=== PATIENT | female | born 1995 | race African-American/Black ===

== ENCOUNTER 2021-08-07 08:04 | Inpatient (IN) ==
[2021-08-07] MEDS ORDERED: ONDANSETRON 4 MG/2 ML VIAL IV STA (09:06)
[2021-08-07] MEDS ORDERED: SODIUM CHLORIDE 0.9% 1,000 ML IV STA ×2 (09:06→10:43)
[2021-08-07] MEDS ORDERED: cloNIDine 0.1 MG TABLET PO STA (09:16)
[2021-08-07 09:31] LABS: Basophils % 0.2 % (0.0-0.8); Hematocrit 30.5 VOL% (35.7-47.0); Hemoglobin 10.2 GM/DL (12.0-16.0); Immature Granulocytes % 0.6 %; Immature Granulocytes Absolute 0.12 #; Lymphocytes # 1.6 10*3/uL (1.4-4.0); Lymphocytes % 8.2 % (21.3-54.2); Mean Corpuscular HGB Conc 33.4 GM/DL (32-36); Mean Corpuscular Volume 93.3 FL (87-102); Mean Platelet Volume 10.3 FL (9.6-12.0); Monocytes % 3.9 % (1.7-12.7); Neutrophils % 87.1 % (38.7-73.9); Platelet Count 268 T/CUMM (130-400); Red Blood Count 3.27 MC/CUMM (3.8-5.5); Red Cell Distribution Width 14.2 % (9.3-17.3); White Blood Count 19.3 T/CUMM (4-12)
[2021-08-07 09:51] LABS: Albumin 2.2 G/DL (3.4-5.0); Bilirubin,Total 0.6 MG/DL (0.20-1.00); Osmolality,Calculated 307.8 MOS/KG (273-304); Potassium 4.3 MMOL/L (3.5-5.1); Total Protein 6.9 G/DL (6.4-8.2)
[2021-08-07 10:44] LABS: Bacteria,Urine Occasional /HPF (Few); Bilirubin,Urine Negative (Negative); Blood, Urine Small mg/dL (Negative); Glucose,Urine (UA) >=500 mg/dL (Negative); Hyaline Casts,Urine 5 /LPF (0-3); Ketones,Urine 5 mg/dL (Negative); Mucus,Urine Occasional /LPF (Occasional); Nitrite,Urine Negative (Negative); Protein,Urine >=500 MG/DL; RBC,Urine 6 /HPF (0-4); Squamous Epithelial Cell,Urine Occasional /HPF (0-10); Urine Appearance Slightly Hazy (Clear); Urine Color Yellow (Yellow); Urine Specific Gravity 1.015 (1.001-1.035); Urine Urobilinogen < 2.0 EU/DL (0.2-1.0)
[2021-08-07 10:46] LABS: Barbiturates Screen,Urine Negative (Negative); Benzodiazepines Screen,Urine Negative (Negative); Cannabinoid Screen,Urine Positive (Negative); Opiate Screen,Urine Negative (Negative); Phencyclidine Screen,Urine Negative (Negative)
[2021-08-07] MEDS ORDERED: cefTRIAXone 1,000 MG in SODIUM CHLORIDE 0.9% 100 ML IV STA (11:09)
[2021-08-07] MEDS ORDERED: DEXTROSE 50% 25 GM/50 ML VIAL IV PRN (11:14)
[2021-08-07] MEDS ORDERED: GLUCAGON 1 MG VIAL IM PRN (11:14)
[2021-08-07] MEDS ORDERED: ALBUTEROL 2.5 MG/3 ML NEB RESP TX PRN (11:14)
[2021-08-07] MEDS ORDERED: ONDANSETRON 4 MG/2 ML VIAL IV PRN (11:14)
[2021-08-07] MEDS ORDERED: ACETAMINOPHEN 325 MG TABLET PO PRN (11:14)
[2021-08-07] MEDS ORDERED: NICOTINE 14 MG/24 HR PATCH TRANSDERM PRN (11:44)
[2021-08-07 12:02] LABS: Risk Ratio 3.7; Thyroid Stimulating Hormone 2.06 uIU/ml (0.358-3.74); VLDL Cholesterol 39.4 MG/DL
[2021-08-07 14:29] LABS: Hematocrit 28.7 VOL% (35.7-47.0); Hemoglobin 9.1 GM/DL (12.0-16.0)
[2021-08-07] MEDS: INSULIN REGULAR 100 UNIT/ML SUBCUT SCH ×3 (14:32→20:47)
[2021-08-07] MEDS ORDERED: ALUM/MAG/SIMETH/LIDO VISC 1:1 30 ML BOTTLE PO ONE (15:00)
[2021-08-07] MEDS ORDERED: ASPIRIN CHEW 81 MG TABLET PO ONE (15:01)
[2021-08-07] MEDS ORDERED: NITROGLYCERIN SL 0.4 MG TABLET SL ONE (15:01)
[2021-08-07] MEDS ORDERED: ASPIRIN 325 MG TABLET ONE (15:01)
[2021-08-07] MEDS ORDERED: INFLUENZA VIRUS VACCINE 0.5 ML SYRINGE IM ONE (15:18)
[2021-08-07] MEDS: PANTOPRAZOLE 40 MG TABLET PO SCH (16:02)
[2021-08-07] MEDS: SODIUM CHLORIDE 0.9% 1,000 ML IV SCH (16:39)
[2021-08-07] MEDS ORDERED: MORPHINE 2 MG/1 ML SYRINGE IV ONE (17:36)
[2021-08-07 21:34] LABS: Hematocrit 27.8 VOL% (35.7-47.0); Hemoglobin 8.8 GM/DL (12.0-16.0)
[2021-08-08] MEDS: SODIUM CHLORIDE 0.9% 1,000 ML IV SCH ×2 (01:11→09:25)
[2021-08-08 05:19] LABS: Basophils % 0.2 % (0.0-0.8); Eosinophils % 0.2 % (0.00-10.9); Hematocrit 27.5 VOL% (35.7-47.0); Hemoglobin 8.8 GM/DL (12.0-16.0); Immature Granulocytes % 0.5 %; Immature Granulocytes Absolute 0.07 #; Lymphocytes # 1.7 10*3/uL (1.4-4.0); Lymphocytes % 12.4 % (21.3-54.2); Mean Corpuscular Volume 95.8 FL (87-102); Mean Platelet Volume 10.8 FL (9.6-12.0); Monocytes % 5.2 % (1.7-12.7); Neutrophils % 81.5 % (38.7-73.9); Red Blood Count 2.87 MC/CUMM (3.8-5.5); Red Cell Distribution Width 14.6 % (9.3-17.3); White Blood Count 13.9 T/CUMM (4-12)
[2021-08-08 05:20] LABS: Platelet Count 179 T/CUMM (130-400)
[2021-08-08 05:40] LABS: Calcium 7.4 MG/DL (8.5-10.1); Potassium 4.3 MMOL/L (3.5-5.1)
[2021-08-08] MEDS: FERROUS SULFATE 325 MG TABLET PO SCH (08:26)
[2021-08-08] MEDS: PANTOPRAZOLE 40 MG TABLET PO SCH (08:26)
[2021-08-08] MEDS ORDERED: PANTOPRAZOLE 40 MG TABLET PO SCH (09:00)
[2021-08-08] MEDS: INSULIN REGULAR 100 UNIT/ML SUBCUT SCH ×4 (10:00→21:09)
[2021-08-08] MEDS ORDERED: MORPHINE 2 MG/1 ML SYRINGE IV ONE (15:14)
[2021-08-08] MEDS: hydrALAZINE 20 MG/1 ML VIAL IV PRN (18:35)
[2021-08-08] MEDS: DIAZEPAM 2 MG TABLET PO SCH (21:09)
[2021-08-09 04:55] LABS: Basophils % 0.2 % (0.0-0.8); Eosinophils # 0.1 10*3/uL (0.0-0.87); Hematocrit 27.4 VOL% (35.7-47.0); Hemoglobin 8.5 GM/DL (12.0-16.0); Immature Granulocytes % 0.2 %; Immature Granulocytes Absolute 0.02 #; Lymphocytes # 1.7 10*3/uL (1.4-4.0); Lymphocytes % 18.4 % (21.3-54.2); Mean Corpuscular Volume 96.5 FL (87-102); Mean Platelet Volume 10.7 FL (9.6-12.0); Monocytes % 4.4 % (1.7-12.7); Neutrophils % 75.8 % (38.7-73.9); Platelet Count 178 T/CUMM (130-400); Red Blood Count 2.84 MC/CUMM (3.8-5.5); Red Cell Distribution Width 14.2 % (9.3-17.3); White Blood Count 9.1 T/CUMM (4-12)
[2021-08-09 05:14] LABS: Calcium 7.7 MG/DL (8.5-10.1); Osmolality,Calculated 298.8 MOS/KG (273-304); Potassium 3.8 MMOL/L (3.5-5.1)
[2021-08-09] MEDS: SODIUM CHLORIDE 0.9% 1,000 ML IV SCH ×4 (06:23→21:39)
[2021-08-09] MEDS: INSULIN REGULAR 100 UNIT/ML SUBCUT SCH ×4 (07:38→20:09)
[2021-08-09] MEDS: hydrALAZINE 20 MG/1 ML VIAL IV PRN (07:49)
[2021-08-09] MEDS: FERROUS SULFATE 325 MG TABLET PO SCH (09:21)
[2021-08-09] MEDS: cloNIDine 0.1 MG TABLET PO SCH ×2 (09:21→20:36)
[2021-08-09] MEDS: DIAZEPAM 2 MG TABLET PO SCH ×3 (09:22→20:37)
[2021-08-09] MEDS: PANTOPRAZOLE 40 MG TABLET PO SCH (09:22)
[2021-08-10] MEDS: SODIUM CHLORIDE 0.9% 1,000 ML IV SCH ×3 (02:35→19:30)
[2021-08-10 04:42] LABS: Basophils % 0.5 % (0.0-0.8); Eosinophils # 0.1 10*3/uL (0.0-0.87); Eosinophils % 1.2 % (0.00-10.9); Hematocrit 23.1 VOL% (35.7-47.0); Hemoglobin 7.1 GM/DL (12.0-16.0); Immature Granulocytes % 0.5 %; Immature Granulocytes Absolute 0.03 #; Lymphocytes # 1.7 10*3/uL (1.4-4.0); Lymphocytes % 26.4 % (21.3-54.2); Mean Corpuscular HGB Conc 30.7 GM/DL (32-36); Mean Corpuscular Volume 97.5 FL (87-102); Mean Platelet Volume 10.7 FL (9.6-12.0); Monocytes % 4.6 % (1.7-12.7); Neutrophils % 66.8 % (38.7-73.9); Platelet Count 174 T/CUMM (130-400); Red Blood Count 2.37 MC/CUMM (3.8-5.5); Red Cell Distribution Width 14.2 % (9.3-17.3); White Blood Count 6.6 T/CUMM (4-12)
[2021-08-10 05:10] LABS: Calcium 7.9 MG/DL (8.5-10.1); Osmolality,Calculated 297.8 MOS/KG (273-304); Potassium 3.8 MMOL/L (3.5-5.1)
[2021-08-10] MEDS: INSULIN REGULAR 100 UNIT/ML SUBCUT SCH ×4 (07:53→21:00)
[2021-08-10 08:01] LABS: Hematocrit 23.8 VOL% (35.7-47.0); Hemoglobin 7.5 GM/DL (12.0-16.0)
[2021-08-10] MEDS: FERROUS SULFATE 325 MG TABLET PO SCH (10:14)
[2021-08-10] MEDS: PANTOPRAZOLE 40 MG TABLET PO SCH (10:14)
[2021-08-10] MEDS: cloNIDine 0.1 MG TABLET PO SCH ×2 (10:14→20:46)
[2021-08-10] MEDS: DIAZEPAM 2 MG TABLET PO SCH ×3 (10:14→20:46)
[2021-08-10] MEDS: hydrALAZINE 20 MG/1 ML VIAL IV PRN ×2 (11:41→23:44)
[2021-08-10 14:22] LABS: Hematocrit 23.9 VOL% (35.7-47.0); Hemoglobin 7.6 GM/DL (12.0-16.0)
[2021-08-10 17:08] LABS: Protein/Creatinine Ratio,Urine 5.6 RATIO
[2021-08-10 18:59] LABS: Hematocrit 24.5 VOL% (35.7-47.0); Hemoglobin 7.9 GM/DL (12.0-16.0)
[2021-08-10] MEDS ORDERED: MORPHINE 2 MG/1 ML SYRINGE ONE (23:30)
[2021-08-10] MEDS ORDERED: NITROGLYCERIN SL 0.4 MG TABLET SL ONE (23:30)
[2021-08-10] MEDS ORDERED: MORPHINE 2 MG/1 ML SYRINGE IV ONE (23:42)
[2021-08-11] MEDS: MORPHINE 2 MG/1 ML SYRINGE IV PRN (03:52)
[2021-08-11] MEDS: SODIUM CHLORIDE 0.9% 1,000 ML IV SCH ×3 (04:12→20:24)
[2021-08-11 05:51] LABS: Basophils % 0.3 % (0.0-0.8); Eosinophils # 0.1 10*3/uL (0.0-0.87); Eosinophils % 0.9 % (0.00-10.9); Hematocrit 24.9 VOL% (35.7-47.0); Hemoglobin 7.7 GM/DL (12.0-16.0); Immature Granulocytes % 0.5 %; Immature Granulocytes Absolute 0.04 #; Lymphocytes # 1.5 10*3/uL (1.4-4.0); Lymphocytes % 20.2 % (21.3-54.2); Mean Corpuscular HGB Conc 30.9 GM/DL (32-36); Mean Corpuscular Volume 95.8 FL (87-102); Mean Platelet Volume 10.5 FL (9.6-12.0); Monocytes % 4.7 % (1.7-12.7); Neutrophils % 73.4 % (38.7-73.9); Platelet Count 222 T/CUMM (130-400); Red Cell Distribution Width 14.1 % (9.3-17.3); White Blood Count 7.4 T/CUMM (4-12)
[2021-08-11 06:10] LABS: Calcium 8.2 MG/DL (8.5-10.1); Osmolality,Calculated 298.7 MOS/KG (273-304)
[2021-08-11] MEDS: cloNIDine 0.1 MG TABLET PO SCH ×2 (08:41→20:17)
[2021-08-11] MEDS: DIAZEPAM 2 MG TABLET PO SCH ×3 (08:41→20:18)
[2021-08-11] MEDS: PANTOPRAZOLE 40 MG TABLET PO SCH (08:41)
[2021-08-11] MEDS: FERROUS SULFATE 325 MG TABLET PO SCH (08:41)
[2021-08-11] MEDS: INSULIN REGULAR 100 UNIT/ML SUBCUT SCH ×4 (09:07→20:17)
[2021-08-11 18:37] LABS: Barbiturates Screen,Urine Negative (Negative); Benzodiazepines Screen,Urine Positive (Negative); Cannabinoid Screen,Urine Positive (Negative); Opiate Screen,Urine Positive (Negative); Phencyclidine Screen,Urine Negative (Negative)
[2021-08-11] MEDS: GABAPENTIN 50 MG/ML 30 ML/BOTTLE PO SCH (20:26)
[2021-08-11] MEDS: hydrALAZINE 20 MG/1 ML VIAL IV PRN (23:46)
[2021-08-12] MEDS: MORPHINE 2 MG/1 ML SYRINGE IV PRN ×3 (03:28→20:55)
[2021-08-12] MEDS: SODIUM CHLORIDE 0.9% 1,000 ML IV SCH ×2 (03:32→13:09)
[2021-08-12 05:15] LABS: Basophils % 0.5 % (0.0-0.8); Eosinophils # 0.1 10*3/uL (0.0-0.87); Eosinophils % 1.5 % (0.00-10.9); Hematocrit 22.4 VOL% (35.7-47.0); Hemoglobin 7.3 GM/DL (12.0-16.0); Immature Granulocytes % 0.3 %; Immature Granulocytes Absolute 0.02 #; Lymphocytes # 1.2 10*3/uL (1.4-4.0); Lymphocytes % 19.6 % (21.3-54.2); Mean Corpuscular HGB Conc 32.6 GM/DL (32-36); Mean Corpuscular Volume 96.1 FL (87-102); Mean Platelet Volume 10.5 FL (9.6-12.0); Monocytes % 4.8 % (1.7-12.7); Neutrophils % 73.3 % (38.7-73.9); Platelet Count 214 T/CUMM (130-400); Red Blood Count 2.33 MC/CUMM (3.8-5.5); Red Cell Distribution Width 13.8 % (9.3-17.3)
[2021-08-12 05:30] LABS: Calcium 8.3 MG/DL (8.5-10.1); Osmolality,Calculated 298.8 MOS/KG (273-304); Potassium 4.4 MMOL/L (3.5-5.1)
[2021-08-12] MEDS: INSULIN REGULAR 100 UNIT/ML SUBCUT SCH ×4 (08:12→20:55)
[2021-08-12 09:37] LABS: % Iron Saturation 12.9 % (18-50); Ferritin 131.9 ng/mL (8-252)
[2021-08-12] MEDS: PANTOPRAZOLE 40 MG TABLET PO SCH ×2 (09:38→20:54)
[2021-08-12] MEDS: cloNIDine 0.1 MG TABLET PO SCH ×2 (09:38→20:55)
[2021-08-12] MEDS: FERROUS SULFATE 325 MG TABLET PO SCH (09:38)
[2021-08-12] MEDS: DIAZEPAM 2 MG TABLET PO SCH ×3 (09:38→20:54)
[2021-08-12] MEDS: GABAPENTIN 50 MG/ML 30 ML/BOTTLE PO SCH ×3 (09:43→23:31)
[2021-08-12] MEDS: LIDOCAINE 5% PATCH TRANSDERM SCH (14:27)
[2021-08-12] MEDS ORDERED: TRIAMCINOLONE ACETONIDE 40 MG/1 ML VIAL MISC INJ ONE (14:34)
[2021-08-12] MEDS ORDERED: ROPIVACAINE 0.5% 30 ML VIAL NERVEBLOCK ONE (14:34)
[2021-08-12] MEDS: metOLazone 5 MG TABLET PO SCH (15:12)
[2021-08-12] MEDS: FUROSEMIDE 40 MG/4 ML VIAL IV SCH (15:12)
[2021-08-13] MEDS: hydrALAZINE 20 MG/1 ML VIAL IV PRN (00:03)
[2021-08-13] MEDS: MORPHINE 2 MG/1 ML SYRINGE IV PRN ×2 (03:14→17:50)
[2021-08-13 08:52] LABS: Calcium 8.7 MG/DL (8.5-10.1); Osmolality,Calculated 301.7 MOS/KG (273-304); Potassium 4.3 MMOL/L (3.5-5.1)
[2021-08-13] MEDS ORDERED: FUROSEMIDE 100 MG/10 ML VIAL IV ONE (09:00)
[2021-08-13 09:18] LABS: Hematocrit 26.7 VOL% (35.7-47.0); Hemoglobin 8.8 GM/DL (12.0-16.0)
[2021-08-13] MEDS: cloNIDine 0.1 MG TABLET PO SCH ×2 (09:18→20:31)
[2021-08-13] MEDS: DIAZEPAM 2 MG TABLET PO SCH ×3 (09:18→20:31)
[2021-08-13] MEDS: metOLazone 5 MG TABLET PO SCH (09:18)
[2021-08-13] MEDS: PANTOPRAZOLE 40 MG TABLET PO SCH ×2 (09:19→20:31)
[2021-08-13] MEDS: CITALOPRAM 20 MG TABLET PO SCH (09:19)
[2021-08-13] MEDS: FERROUS SULFATE 325 MG TABLET PO SCH (09:19)
[2021-08-13] MEDS: INSULIN REGULAR 100 UNIT/ML SUBCUT SCH ×4 (09:20→20:32)
[2021-08-13] MEDS: FUROSEMIDE 40 MG/4 ML VIAL IV SCH ×2 (09:20→15:49)
[2021-08-13] MEDS: GABAPENTIN 50 MG/ML 30 ML/BOTTLE PO SCH ×3 (09:20→20:32)
[2021-08-13] MEDS: LIDOCAINE 5% PATCH TRANSDERM SCH (09:20)
[2021-08-13 12:44] LABS: Folate 7.11 NG/ML (5.38-24.0)
[2021-08-14 07:21] VITALS: BP 161/90
[2021-08-14] MEDS: INSULIN REGULAR 100 UNIT/ML SUBCUT SCH ×3 (08:25→16:52)
[2021-08-14] MEDS: GABAPENTIN 50 MG/ML 30 ML/BOTTLE PO SCH ×2 (10:21→16:51)
[2021-08-14] MEDS: cloNIDine 0.1 MG TABLET PO SCH (10:22)
[2021-08-14] MEDS: CITALOPRAM 20 MG TABLET PO SCH (10:22)
[2021-08-14] MEDS: PANTOPRAZOLE 40 MG TABLET PO SCH (10:22)
[2021-08-14] MEDS: FERROUS SULFATE 325 MG TABLET PO SCH (10:23)
[2021-08-14] MEDS: DIAZEPAM 2 MG TABLET PO SCH ×2 (10:23→16:51)
[2021-08-14] MEDS: metOLazone 5 MG TABLET PO SCH (10:23)
[2021-08-14] MEDS: FUROSEMIDE 40 MG/4 ML VIAL IV SCH ×2 (10:23→16:52)
[2021-08-14] MEDS: LIDOCAINE 5% PATCH TRANSDERM SCH (10:24)
[2021-08-16 09:11] LABS: H pylori Specimen source STOOL; Helicobacter pylori Result Not Detected
== END 2021-08-14 16:49 | disposition home or self-care (01) | DRG 203 ==
LOC: N.ED 08:04 → N.EDINP 11:14 → SUATTDRO 11:14 → N.EDINP 13:47 → N.5E 13:59
PROVIDERS: ADMIT Internal Medicine Geriatric Medicine; ATTEND Internal Medicine

== ENCOUNTER 2021-12-13 19:25 | Inpatient (IN) ==
[2021-12-14] MEDS ORDERED: FUROSEMIDE 40 MG/4 ML VIAL IV STA (00:53)
[2021-12-14 01:22] LABS: Basophils % 0.4 % (0.0-0.8); Eosinophils # 0.2 10*3/uL (0.0-0.87); Eosinophils % 1.8 % (0.00-10.9); Hematocrit 21.9 VOL% (35.7-47.0); Hemoglobin 6.5 GM/DL (12.0-16.0); Immature Granulocytes % 0.3 %; Immature Granulocytes Absolute 0.03 #; Lymphocytes # 2.1 10*3/uL (1.4-4.0); Lymphocytes % 22.6 % (21.3-54.2); Mean Corpuscular HGB Conc 29.7 GM/DL (32-36); Mean Corpuscular Volume 92.4 FL (87-102); Mean Platelet Volume 10.4 FL (9.6-12.0); Monocytes % 6.1 % (1.7-12.7); Neutrophils % 68.8 % (38.7-73.9); Platelet Count 384 T/CUMM (130-400); Red Blood Count 2.37 MC/CUMM (3.8-5.5); Red Cell Distribution Width 17.4 % (9.3-17.3); White Blood Count 9.4 T/CUMM (4-12)
[2021-12-14 01:57] LABS: Alanine Aminotransferase < 9 U/L (13-56); Albumin 1.9 G/DL (3.4-5.0); Alkaline Phosphatase 65 U/L (45-117); Aspartate Amino Transferase 12 U/L (0-37); Bilirubin,Total < 0.39 MG/DL (0.20-1.00); Blood Urea Nitrogen 94 MG/DL (7-18); Calcium 8.6 MG/DL (8.5-10.1); Carbon Dioxide 14 MMOL/L (21-32); Estimated Glom Filtration Rate 5 ML/MIN; Glucose 176 MG/DL (74-106); Osmolality,Calculated 311.4 MOS/KG (273-304); Potassium 5.2 MMOL/L (3.5-5.1); Sodium 140 MMOL/L (136-145); Total Protein 8.1 G/DL (6.4-8.2)
[2021-12-14] MEDS ORDERED: DEXTROSE 50% 25 GM/50 ML VIAL IV STA (02:03)
[2021-12-14] MEDS ORDERED: INSULIN REGULAR 100 UNIT/ML IV STA (02:04)
[2021-12-14] MEDS ORDERED: LABETALOL 20 MG/4 ML SYRINGE IV STA (02:11)
[2021-12-14] MEDS ORDERED: GLUCAGON 1 MG VIAL IM PRN (02:49)
[2021-12-14] MEDS ORDERED: DEXTROSE 10% 250 ML BAG IV PRN (02:49)
[2021-12-14] MEDS ORDERED: hydrALAZINE 20 MG/1 ML VIAL IV PRN (02:49)
[2021-12-14] MEDS ORDERED: ACETAMINOPHEN 325 MG TABLET PO PRN (02:49)
[2021-12-14] MEDS ORDERED: SODIUM POLYSTYRENE SULFATE 15 GM/60 ML BOTTLE PO STA (02:49)
[2021-12-14] MEDS ORDERED: SODIUM CHLORIDE 0.9% 1,000 ML IV PRN ×3 (02:58→22:31)
[2021-12-14] MEDS: HYDROmorphone 2 MG/1 ML VIAL IV PRN (03:54)
[2021-12-14 04:42] LABS: Thyroid Stimulating Hormone 3.39 uIU/ml (0.358-3.74)
[2021-12-14 05:21] LABS: Folate 11.44 NG/ML (5.38-24.0)
[2021-12-14 05:25] LABS: % Iron Saturation 9.8 % (18-50); Ferritin 81.7 ng/mL (8-252)
[2021-12-14] MEDS: INSULIN LISPRO 100 UNIT/ML SUBCUT SCH ×4 (07:50→21:16)
[2021-12-14] MEDS: FUROSEMIDE 40 MG/4 ML VIAL IV SCH ×2 (09:00→16:06)
[2021-12-14] MEDS ORDERED: SODIUM BICARBONATE 650 MG TABLET PO SCH (09:00)
[2021-12-14] MEDS: PANTOPRAZOLE 40 MG VIAL IV SCH ×2 (09:03→21:16)
[2021-12-14] MEDS: LABETALOL 20 MG/4 ML SYRINGE IV PRN (10:35)
[2021-12-14] MEDS ORDERED: INFLUENZA VIRUS VACCINE 0.5 ML SYRINGE IM ONE (14:51)
[2021-12-14 15:34] LABS: Hematocrit 19.2 VOL% (35.7-47.0)
[2021-12-14 15:37] LABS: Hemoglobin 5.8 GM/DL (12.0-16.0)
[2021-12-14] MEDS: SODIUM BICARBONATE 650 MG TABLET PO SCH ×2 (15:53→21:17)
[2021-12-14] MEDS: FERRIC GLUCONATE COMPLEX 125 MG in SODIUM CHLORIDE 0.9% 100 ML IV SCH (15:53)
[2021-12-14] MEDS: ALPRAZolam 0.5 MG TABLET PO PRN (15:53)
[2021-12-14 17:31] LABS: Hematocrit 19.7 VOL% (35.7-47.0)
[2021-12-14 17:41] LABS: Hemoglobin 6.1 GM/DL (12.0-16.0)
[2021-12-14] MEDS ORDERED: EPOETIN ALFA-EPBX 3,000 UNIT/ML VIAL IV ONE (20:00)
[2021-12-15 06:39] LABS: Basophils % 0.5 % (0.0-0.8); Eosinophils # 0.2 10*3/uL (0.0-0.87); Eosinophils % 1.9 % (0.00-10.9); Immature Granulocytes % 0.4 %; Immature Granulocytes Absolute 0.03 #; Lymphocytes # 1.4 10*3/uL (1.4-4.0); Lymphocytes % 17.5 % (21.3-54.2); Mean Corpuscular HGB Conc 30.6 GM/DL (32-36); Mean Corpuscular Volume 89.2 FL (87-102); Mean Platelet Volume 9.7 FL (9.6-12.0); Monocytes % 7.6 % (1.7-12.7); Neutrophils % 72.1 % (38.7-73.9); Platelet Count 321 T/CUMM (130-400)
[2021-12-15 06:48] LABS: Hematocrit 28.1 VOL% (35.7-47.0); Hemoglobin 8.6 GM/DL (12.0-16.0); Red Blood Count 3.15 MC/CUMM (3.8-5.5)
[2021-12-15 07:15] LABS: Calcium 8.6 MG/DL (8.5-10.1); Osmolality,Calculated 303.5 MOS/KG (273-304); Potassium 5.2 MMOL/L (3.5-5.1)
[2021-12-15] MEDS: HYDROmorphone 2 MG/1 ML VIAL IV PRN ×4 (07:17→16:33)
[2021-12-15] MEDS: INSULIN LISPRO 100 UNIT/ML SUBCUT SCH ×4 (07:44→22:49)
[2021-12-15] MEDS: FUROSEMIDE 40 MG/4 ML VIAL IV SCH ×2 (08:42→16:31)
[2021-12-15] MEDS: SODIUM BICARBONATE 650 MG TABLET PO SCH ×3 (08:42→20:55)
[2021-12-15] MEDS: PANTOPRAZOLE 40 MG VIAL IV SCH ×2 (08:43→20:55)
[2021-12-15] MEDS ORDERED: IRON SUCROSE 200 MG in SODIUM CHLORIDE 0.9% 100 ML IV SCH (09:00)
[2021-12-15] MEDS: carvediloL 12.5 MG TABLET PO SCH ×2 (09:44→20:55)
[2021-12-15] MEDS: LABETALOL 20 MG/4 ML SYRINGE IV PRN (12:24)
[2021-12-15] MEDS: FERRIC GLUCONATE COMPLEX 125 MG in SODIUM CHLORIDE 0.9% 100 ML IV SCH (16:36)
[2021-12-15] MEDS ORDERED: INSULIN GLARGINE 100 UNIT/ML SUBCUT SCH (21:00)
[2021-12-15 23:44] LABS: Bacteria,Urine Occasional /HPF (Few); Bilirubin,Urine Negative (Negative); Blood, Urine Small mg/dL (Negative); Glucose,Urine (UA) 50 mg/dL (Negative); Hyaline Casts,Urine 1 /LPF (0-3); Ketones,Urine Negative (Negative); Mucus,Urine Occasional /LPF (Occasional); Nitrite,Urine Negative (Negative); Protein,Urine >=500 MG/DL; RBC,Urine 8 /HPF (0-4); Squamous Epithelial Cell,Urine Occasional /HPF (0-10); Urine Appearance CLEAR (Clear); Urine Color Straw (Yellow); Urine Urobilinogen < 2.0 EU/DL (<2.0)
[2021-12-16 03:47] LABS: Basophils % 0.4 % (0.0-0.8); Eosinophils # 0.2 10*3/uL (0.0-0.87); Eosinophils % 1.8 % (0.00-10.9); Hematocrit 25.6 VOL% (35.7-47.0); Hemoglobin 7.8 GM/DL (12.0-16.0); Immature Granulocytes % 0.4 %; Immature Granulocytes Absolute 0.03 #; Lymphocytes # 1.1 10*3/uL (1.4-4.0); Lymphocytes % 13.8 % (21.3-54.2); Mean Corpuscular HGB Conc 30.5 GM/DL (32-36); Mean Corpuscular Volume 89.5 FL (87-102); Mean Platelet Volume 9.6 FL (9.6-12.0); Monocytes % 6.9 % (1.7-12.7); Neutrophils % 76.7 % (38.7-73.9); Platelet Count 307 T/CUMM (130-400); Red Blood Count 2.86 MC/CUMM (3.8-5.5); Red Cell Distribution Width 17.1 % (9.3-17.3); White Blood Count 8.1 T/CUMM (4-12)
[2021-12-16 04:04] LABS: Calcium 7.9 MG/DL (8.5-10.1); Osmolality,Calculated 311.3 MOS/KG (273-304); Potassium 5.2 MMOL/L (3.5-5.1)
[2021-12-16] MEDS: LABETALOL 20 MG/4 ML SYRINGE IV PRN (04:33)
[2021-12-16] MEDS ORDERED: CITALOPRAM 20 MG TABLET PO SCH (09:00)
[2021-12-16] MEDS: SODIUM BICARBONATE 650 MG TABLET PO SCH ×3 (09:11→20:47)
[2021-12-16] MEDS: carvediloL 12.5 MG TABLET PO SCH (09:11)
[2021-12-16] MEDS: FUROSEMIDE 40 MG/4 ML VIAL IV SCH ×2 (09:12→16:55)
[2021-12-16] MEDS: PANTOPRAZOLE 40 MG VIAL IV SCH ×2 (09:14→20:46)
[2021-12-16] MEDS: INSULIN LISPRO 100 UNIT/ML SUBCUT SCH ×3 (12:30→21:05)
[2021-12-16] MEDS: metOLazone 5 MG TABLET PO SCH (16:51)
[2021-12-16] MEDS: FERRIC GLUCONATE COMPLEX 125 MG in SODIUM CHLORIDE 0.9% 100 ML IV SCH (16:53)
[2021-12-16] MEDS: INSULIN GLARGINE 100 UNIT/ML SUBCUT SCH (20:46)
[2021-12-16] MEDS: carvediloL 6.25 MG TABLET PO SCH (20:47)
[2021-12-16] MEDS: OLANZapine 2.5 MG TABLET PO SCH (20:47)
[2021-12-16] MEDS: FLUoxetine 10 MG CAPSULE PO SCH (20:47)
[2021-12-17 05:11] LABS: Basophils % 0.4 % (0.0-0.8); Eosinophils # 0.2 10*3/uL (0.0-0.87); Eosinophils % 2.3 % (0.00-10.9); Hematocrit 23.4 VOL% (35.7-47.0); Hemoglobin 7.1 GM/DL (12.0-16.0); Immature Granulocytes % 0.4 %; Immature Granulocytes Absolute 0.03 #; Lymphocytes # 1.5 10*3/uL (1.4-4.0); Lymphocytes % 21.9 % (21.3-54.2); Mean Corpuscular HGB Conc 30.3 GM/DL (32-36); Mean Corpuscular Volume 90.3 FL (87-102); Mean Platelet Volume 10.3 FL (9.6-12.0); Platelet Count 310 T/CUMM (130-400); Red Blood Count 2.59 MC/CUMM (3.8-5.5); Red Cell Distribution Width 16.9 % (9.3-17.3); White Blood Count 6.9 T/CUMM (4-12)
[2021-12-17 05:36] LABS: Calcium 8.1 MG/DL (8.5-10.1); Osmolality,Calculated 302.5 MOS/KG (273-304); Potassium 4.8 MMOL/L (3.5-5.1)
[2021-12-17] MEDS: PANTOPRAZOLE 40 MG VIAL IV SCH ×2 (09:15→21:58)
[2021-12-17] MEDS: INSULIN LISPRO 100 UNIT/ML SUBCUT SCH ×5 (09:40→20:57)
[2021-12-17] MEDS: carvediloL 6.25 MG TABLET PO SCH ×2 (10:13→20:55)
[2021-12-17] MEDS: SODIUM BICARBONATE 650 MG TABLET PO SCH ×3 (10:13→20:56)
[2021-12-17] MEDS: metOLazone 5 MG TABLET PO SCH (10:14)
[2021-12-17] MEDS: FUROSEMIDE 40 MG/4 ML VIAL IV SCH ×2 (10:16→16:32)
[2021-12-17] MEDS: GABAPENTIN 100 MG CAPSULE PO SCH ×2 (16:30→20:56)
[2021-12-17] MEDS: FERRIC GLUCONATE COMPLEX 125 MG in SODIUM CHLORIDE 0.9% 100 ML IV SCH (16:33)
[2021-12-17] MEDS ORDERED: BISACODYL 5 MG TABLET PO ONE (17:42)
[2021-12-17 17:46] LABS: CKMB % 1.3 %
[2021-12-17] MEDS: HEPARIN 5,000 UNIT/1 ML VIAL SUBCUT SCH (18:00)
[2021-12-17] MEDS: OLANZapine 2.5 MG TABLET PO SCH (20:56)
[2021-12-17] MEDS: FLUoxetine 10 MG CAPSULE PO SCH (20:56)
[2021-12-17] MEDS: INSULIN GLARGINE 100 UNIT/ML SUBCUT SCH (20:57)
[2021-12-18] MEDS: HEPARIN 5,000 UNIT/1 ML VIAL SUBCUT SCH (05:18)
[2021-12-18 05:32] LABS: Basophils % 0.2 % (0.0-0.8); Eosinophils # 0.1 10*3/uL (0.0-0.87); Eosinophils % 1.4 % (0.00-10.9); Hematocrit 25.1 VOL% (35.7-47.0); Hemoglobin 7.6 GM/DL (12.0-16.0); Immature Granulocytes % 0.4 %; Immature Granulocytes Absolute 0.03 #; Lymphocytes # 1.4 10*3/uL (1.4-4.0); Lymphocytes % 16.6 % (21.3-54.2); Mean Corpuscular HGB Conc 30.3 GM/DL (32-36); Mean Corpuscular Volume 89.6 FL (87-102); Monocytes % 10.5 % (1.7-12.7); Neutrophils % 70.9 % (38.7-73.9); Platelet Count 344 T/CUMM (130-400); Red Cell Distribution Width 16.6 % (9.3-17.3); White Blood Count 8.4 T/CUMM (4-12)
[2021-12-18 05:56] LABS: Osmolality,Calculated 302.7 MOS/KG (273-304); Potassium 4.8 MMOL/L (3.5-5.1)
[2021-12-18] MEDS: INSULIN LISPRO 100 UNIT/ML SUBCUT SCH ×4 (08:29→22:23)
[2021-12-18] MEDS: metOLazone 5 MG TABLET PO SCH (10:47)
[2021-12-18] MEDS: FEBUXOSTAT 80 MG TABLET PO SCH (10:47)
[2021-12-18] MEDS: SODIUM BICARBONATE 650 MG TABLET PO SCH ×3 (10:47→20:42)
[2021-12-18] MEDS: carvediloL 6.25 MG TABLET PO SCH ×2 (10:48→20:41)
[2021-12-18] MEDS: FUROSEMIDE 40 MG/4 ML VIAL IV SCH ×2 (10:50→15:55)
[2021-12-18] MEDS: GABAPENTIN 100 MG CAPSULE PO SCH ×3 (10:54→20:42)
[2021-12-18] MEDS: PANTOPRAZOLE 40 MG VIAL IV SCH ×2 (10:54→20:57)
[2021-12-18] MEDS: FERRIC GLUCONATE COMPLEX 125 MG in SODIUM CHLORIDE 0.9% 100 ML IV SCH (16:06)
[2021-12-18] MEDS: OLANZapine 2.5 MG TABLET PO SCH (20:42)
[2021-12-18] MEDS: FLUoxetine 10 MG CAPSULE PO SCH (21:02)
[2021-12-19 05:34] LABS: Basophils % 0.3 % (0.0-0.8); Eosinophils # 0.1 10*3/uL (0.0-0.87); Eosinophils % 1.4 % (0.00-10.9); Hematocrit 24.5 VOL% (35.7-47.0); Hemoglobin 7.6 GM/DL (12.0-16.0); Immature Granulocytes % 0.3 %; Immature Granulocytes Absolute 0.02 #; Lymphocytes # 1.4 10*3/uL (1.4-4.0); Lymphocytes % 18.5 % (21.3-54.2); Mean Corpuscular Volume 88.4 FL (87-102); Mean Platelet Volume 10.3 FL (9.6-12.0); Monocytes % 10.1 % (1.7-12.7); Neutrophils % 69.4 % (38.7-73.9); Platelet Count 341 T/CUMM (130-400); Red Blood Count 2.77 MC/CUMM (3.8-5.5); Red Cell Distribution Width 16.7 % (9.3-17.3); White Blood Count 7.6 T/CUMM (4-12)
[2021-12-19 05:48] LABS: Calcium 7.6 MG/DL (8.5-10.1); Osmolality,Calculated 301.8 MOS/KG (273-304); Potassium 4.8 MMOL/L (3.5-5.1)
[2021-12-19] MEDS: INSULIN LISPRO 100 UNIT/ML SUBCUT SCH ×4 (07:36→21:00)
[2021-12-19] MEDS: carvediloL 6.25 MG TABLET PO SCH ×2 (08:39→21:00)
[2021-12-19] MEDS ORDERED: ONDANSETRON 4 MG/2 ML VIAL ONE (08:40)
[2021-12-19] MEDS ORDERED: SODIUM CHLORIDE 0.9% 250 ML IV ONE (08:40)
[2021-12-19] MEDS ORDERED: HEPARIN 5,000 UNIT/1 ML VIAL ONE (08:40)
[2021-12-19] MEDS ORDERED: MIDAZOLAM 2 MG/2 ML VIAL ONE ×2 (08:40→09:07)
[2021-12-19] MEDS ORDERED: propofoL 200 MG/20 ML VIAL IV ONE (08:40)
[2021-12-19] MEDS ORDERED: fentaNYL 100 MCG/2 ML VIAL ONE (08:40)
[2021-12-19] MEDS ORDERED: LIDOCAINE 2% 5 ML VIAL ONE (08:40)
[2021-12-19] MEDS ORDERED: BUPIVACAINE MPF 0.25% 30 ML VIAL ONE (08:40)
[2021-12-19] MEDS ORDERED: LIDOCAINE 1%/EPI INJ 20 ML VIAL ONE (08:41)
[2021-12-19] MEDS ORDERED: KETAMINE 500 MG/10 ML VIAL ONE (08:41)
[2021-12-19] MEDS ORDERED: SODIUM CHLORIDE 0.9% 250 ML IV SCH (09:30)
[2021-12-19] MEDS: GABAPENTIN 100 MG CAPSULE PO SCH ×3 (10:38→21:01)
[2021-12-19] MEDS: FUROSEMIDE 40 MG/4 ML VIAL IV SCH ×2 (10:38→17:02)
[2021-12-19] MEDS: metOLazone 5 MG TABLET PO SCH (10:38)
[2021-12-19] MEDS: PANTOPRAZOLE 40 MG VIAL IV SCH ×2 (10:38→21:00)
[2021-12-19] MEDS: SODIUM BICARBONATE 650 MG TABLET PO SCH ×3 (10:38→21:00)
[2021-12-19] MEDS: FEBUXOSTAT 80 MG TABLET PO SCH (10:38)
[2021-12-19 10:53] LABS: Hepatitis B Core IgM Quant 0.12 Index; Hepatitis B Surface Ag Quant < 0.10 Index; Hepatitis B Surface Ag Result Non-Reactive (NonReactive); Hepatitis C Virus Ab Quant 0.19 Index; Hepatitis C Virus Ab Result Non-Reactive (NonReactive)
[2021-12-19] MEDS ORDERED: HEPARIN 10,000 UNIT/10 ML VIAL IV PRN (14:15)
[2021-12-19] MEDS: OLANZapine 2.5 MG TABLET PO SCH (21:00)
[2021-12-19] MEDS: FLUoxetine 10 MG CAPSULE PO SCH (21:01)
[2021-12-20 05:52] LABS: Basophils # 0.1 10*3/uL (0.0-0.2); Basophils % 0.6 % (0.0-0.8); Eosinophils # 0.2 10*3/uL (0.0-0.87); Eosinophils % 2.1 % (0.00-10.9); Hematocrit 26.5 VOL% (35.7-47.0); Hemoglobin 8.1 GM/DL (12.0-16.0); Immature Granulocytes % 0.4 %; Immature Granulocytes Absolute 0.03 #; Lymphocytes # 1.6 10*3/uL (1.4-4.0); Lymphocytes % 18.7 % (21.3-54.2); Mean Corpuscular HGB Conc 30.6 GM/DL (32-36); Mean Corpuscular Volume 88.9 FL (87-102); Mean Platelet Volume 9.5 FL (9.6-12.0); Monocytes % 9.3 % (1.7-12.7); Neutrophils % 68.9 % (38.7-73.9); Platelet Count 355 T/CUMM (130-400); Red Blood Count 2.98 MC/CUMM (3.8-5.5); Red Cell Distribution Width 16.7 % (9.3-17.3); White Blood Count 8.5 T/CUMM (4-12)
[2021-12-20 06:06] LABS: Calcium 8.1 MG/DL (8.5-10.1); Osmolality,Calculated 295.8 MOS/KG (273-304); Potassium 4.3 MMOL/L (3.5-5.1)
[2021-12-20] MEDS: INSULIN LISPRO 100 UNIT/ML SUBCUT SCH ×4 (09:00→22:00)
[2021-12-20] MEDS ORDERED: EPOETIN ALFA-EPBX 3,000 UNIT/ML VIAL IV PRN (10:05)
[2021-12-20 10:37] LABS: % Iron Saturation 19.3 % (18-50)
[2021-12-20] MEDS: FUROSEMIDE 40 MG/4 ML VIAL IV SCH ×2 (12:32→16:24)
[2021-12-20] MEDS: SODIUM BICARBONATE 650 MG TABLET PO SCH ×3 (12:33→21:59)
[2021-12-20] MEDS: GABAPENTIN 100 MG CAPSULE PO SCH ×4 (12:33→22:00)
[2021-12-20] MEDS: carvediloL 6.25 MG TABLET PO SCH ×2 (13:17→22:00)
[2021-12-20] MEDS: PANTOPRAZOLE 40 MG VIAL IV SCH ×2 (13:17→22:01)
[2021-12-20] MEDS: metOLazone 5 MG TABLET PO SCH (13:17)
[2021-12-20] MEDS: FEBUXOSTAT 80 MG TABLET PO SCH (13:17)
[2021-12-20] MEDS: OLANZapine 2.5 MG TABLET PO SCH (22:00)
[2021-12-20] MEDS: FLUoxetine 10 MG CAPSULE PO SCH (22:00)
[2021-12-21 07:07] LABS: Basophils % 0.4 % (0.0-0.8); Eosinophils # 0.1 10*3/uL (0.0-0.87); Eosinophils % 1.3 % (0.00-10.9); Hematocrit 24.3 VOL% (35.7-47.0); Hemoglobin 7.5 GM/DL (12.0-16.0); Immature Granulocytes % 0.4 %; Immature Granulocytes Absolute 0.03 #; Lymphocytes # 1.7 10*3/uL (1.4-4.0); Lymphocytes % 20.5 % (21.3-54.2); Mean Corpuscular HGB Conc 30.9 GM/DL (32-36); Mean Corpuscular Volume 89.7 FL (87-102); Mean Platelet Volume 10.2 FL (9.6-12.0); Monocytes % 9.8 % (1.7-12.7); Neutrophils % 67.6 % (38.7-73.9); Platelet Count 287 T/CUMM (130-400); Red Blood Count 2.71 MC/CUMM (3.8-5.5); Red Cell Distribution Width 16.6 % (9.3-17.3); White Blood Count 8.3 T/CUMM (4-12)
[2021-12-21 07:27] LABS: Calcium 7.6 MG/DL (8.5-10.1); Osmolality,Calculated 294.3 MOS/KG (273-304); Potassium 4.1 MMOL/L (3.5-5.1)
[2021-12-21] MEDS: SODIUM BICARBONATE 650 MG TABLET PO SCH ×3 (09:28→20:14)
[2021-12-21] MEDS: FEBUXOSTAT 80 MG TABLET PO SCH (09:29)
[2021-12-21] MEDS: GABAPENTIN 100 MG CAPSULE PO SCH ×3 (09:29→20:15)
[2021-12-21] MEDS: carvediloL 6.25 MG TABLET PO SCH ×2 (09:29→20:15)
[2021-12-21] MEDS: PANTOPRAZOLE 40 MG VIAL IV SCH ×2 (09:29→20:15)
[2021-12-21] MEDS: metOLazone 5 MG TABLET PO SCH (09:29)
[2021-12-21] MEDS: FUROSEMIDE 40 MG/4 ML VIAL IV SCH (09:30)
[2021-12-21] MEDS: INSULIN LISPRO 100 UNIT/ML SUBCUT SCH ×4 (09:32→21:39)
[2021-12-21] MEDS ORDERED: IRON SUCROSE 100 MG/5 ML VIAL IV SCH (11:00)
[2021-12-21] MEDS: INSULIN GLARGINE 100 UNIT/ML SUBCUT SCH (12:55)
[2021-12-21] MEDS: OLANZapine 2.5 MG TABLET PO SCH (20:14)
[2021-12-21] MEDS: FLUoxetine 10 MG CAPSULE PO SCH (20:14)
[2021-12-21] MEDS: ALPRAZolam 0.5 MG TABLET PO PRN (21:40)
[2021-12-22 06:48] LABS: Basophils % 0.4 % (0.0-0.8); Eosinophils # 0.2 10*3/uL (0.0-0.87); Eosinophils % 2.3 % (0.00-10.9); Hematocrit 24.7 VOL% (35.7-47.0); Hemoglobin 7.3 GM/DL (12.0-16.0); Immature Granulocytes % 0.5 %; Immature Granulocytes Absolute 0.04 #; Lymphocytes % 26.9 % (21.3-54.2); Mean Corpuscular HGB Conc 29.6 GM/DL (32-36); Mean Corpuscular Volume 91.8 FL (87-102); Mean Platelet Volume 10.4 FL (9.6-12.0); Monocytes % 11.3 % (1.7-12.7); Neutrophils % 58.6 % (38.7-73.9); Platelet Count 302 T/CUMM (130-400); Red Blood Count 2.69 MC/CUMM (3.8-5.5); Red Cell Distribution Width 16.9 % (9.3-17.3); White Blood Count 7.5 T/CUMM (4-12)
[2021-12-22 07:05] LABS: Osmolality,Calculated 293.3 MOS/KG (273-304); Potassium 4.7 MMOL/L (3.5-5.1)
[2021-12-22] MEDS: carvediloL 6.25 MG TABLET PO SCH ×2 (09:22→20:53)
[2021-12-22] MEDS: GABAPENTIN 100 MG CAPSULE PO SCH ×3 (09:22→20:53)
[2021-12-22] MEDS: FEBUXOSTAT 80 MG TABLET PO SCH (09:22)
[2021-12-22] MEDS: INSULIN LISPRO 100 UNIT/ML SUBCUT SCH ×4 (09:23→20:54)
[2021-12-22] MEDS: INSULIN GLARGINE 100 UNIT/ML SUBCUT SCH (09:23)
[2021-12-22] MEDS: PANTOPRAZOLE 40 MG VIAL IV SCH ×2 (09:24→20:54)
[2021-12-22] MEDS: OLANZapine 2.5 MG TABLET PO SCH (20:53)
[2021-12-22] MEDS: FLUoxetine 10 MG CAPSULE PO SCH (20:53)
[2021-12-23 05:26] LABS: Basophils % 0.4 % (0.0-0.8); Eosinophils # 0.2 10*3/uL (0.0-0.87); Eosinophils % 1.6 % (0.00-10.9); Hemoglobin 7.4 GM/DL (12.0-16.0); Immature Granulocytes % 0.4 %; Immature Granulocytes Absolute 0.04 #; Lymphocytes # 2.1 10*3/uL (1.4-4.0); Lymphocytes % 22.6 % (21.3-54.2); Mean Corpuscular HGB Conc 29.6 GM/DL (32-36); Mean Corpuscular Volume 91.2 FL (87-102); Mean Platelet Volume 10.2 FL (9.6-12.0); Monocytes % 8.6 % (1.7-12.7); Neutrophils % 66.4 % (38.7-73.9); Platelet Count 296 T/CUMM (130-400); Red Blood Count 2.74 MC/CUMM (3.8-5.5); Red Cell Distribution Width 16.6 % (9.3-17.3); White Blood Count 9.2 T/CUMM (4-12)
[2021-12-23] MEDS: carvediloL 6.25 MG TABLET PO SCH ×2 (08:21→20:13)
[2021-12-23] MEDS: FEBUXOSTAT 80 MG TABLET PO SCH (08:21)
[2021-12-23] MEDS: PANTOPRAZOLE 40 MG VIAL IV SCH ×2 (08:21→20:13)
[2021-12-23] MEDS: GABAPENTIN 100 MG CAPSULE PO SCH ×3 (08:21→20:14)
[2021-12-23] MEDS: INSULIN GLARGINE 100 UNIT/ML SUBCUT SCH (08:22)
[2021-12-23] MEDS: INSULIN LISPRO 100 UNIT/ML SUBCUT SCH ×4 (08:23→20:16)
[2021-12-23] MEDS: OLANZapine 2.5 MG TABLET PO SCH (20:14)
[2021-12-23] MEDS: FLUoxetine 10 MG CAPSULE PO SCH (20:15)
[2021-12-24 05:41] LABS: Basophils % 0.3 % (0.0-0.8); Eosinophils # 0.2 10*3/uL (0.0-0.87); Eosinophils % 2.3 % (0.00-10.9); Hematocrit 25.4 VOL% (35.7-47.0); Hemoglobin 7.5 GM/DL (12.0-16.0); Immature Granulocytes % 0.5 %; Immature Granulocytes Absolute 0.04 #; Lymphocytes # 1.9 10*3/uL (1.4-4.0); Lymphocytes % 21.9 % (21.3-54.2); Mean Corpuscular HGB Conc 29.5 GM/DL (32-36); Mean Platelet Volume 10.1 FL (9.6-12.0); Monocytes % 8.7 % (1.7-12.7); Neutrophils % 66.3 % (38.7-73.9); Platelet Count 304 T/CUMM (130-400); Red Blood Count 2.76 MC/CUMM (3.8-5.5); Red Cell Distribution Width 16.6 % (9.3-17.3); White Blood Count 8.8 T/CUMM (4-12)
[2021-12-24 06:05] LABS: Calcium 8.5 MG/DL (8.5-10.1); Osmolality,Calculated 285.7 MOS/KG (273-304); Potassium 5.3 MMOL/L (3.5-5.1)
[2021-12-24] MEDS: INSULIN GLARGINE 100 UNIT/ML SUBCUT SCH (10:04)
[2021-12-24] MEDS: ASPIRIN EC 81 MG TABLET PO SCH (10:04)
[2021-12-24] MEDS: INSULIN LISPRO 100 UNIT/ML SUBCUT SCH ×4 (10:04→21:57)
[2021-12-24] MEDS: carvediloL 25 MG TABLET PO SCH ×2 (10:05→17:06)
[2021-12-24] MEDS: GABAPENTIN 100 MG CAPSULE PO SCH ×3 (10:05→20:59)
[2021-12-24] MEDS: carvediloL 6.25 MG TABLET PO SCH (10:26)
[2021-12-24] MEDS: FLUoxetine 10 MG CAPSULE PO SCH (21:00)
[2021-12-24] MEDS: OLANZapine 2.5 MG TABLET PO SCH (21:00)
[2021-12-24] MEDS: PANTOPRAZOLE 40 MG TABLET PO SCH (21:00)
[2021-12-25 07:08] LABS: Calcium 8.5 MG/DL (8.5-10.1); Osmolality,Calculated 281.8 MOS/KG (273-304); Potassium 4.4 MMOL/L (3.5-5.1)
[2021-12-25] MEDS: carvediloL 25 MG TABLET PO SCH ×2 (08:39→16:40)
[2021-12-25] MEDS: GABAPENTIN 100 MG CAPSULE PO SCH ×3 (08:39→20:45)
[2021-12-25] MEDS: PANTOPRAZOLE 40 MG TABLET PO SCH ×2 (08:39→20:45)
[2021-12-25] MEDS: ASPIRIN EC 81 MG TABLET PO SCH (08:39)
[2021-12-25] MEDS: INSULIN LISPRO 100 UNIT/ML SUBCUT SCH ×4 (08:40→21:46)
[2021-12-25] MEDS: INSULIN GLARGINE 100 UNIT/ML SUBCUT SCH (08:40)
[2021-12-25] MEDS: OLANZapine 2.5 MG TABLET PO SCH (20:45)
[2021-12-25] MEDS: FLUoxetine 10 MG CAPSULE PO SCH (20:46)
[2021-12-26 05:53] LABS: Calcium 8.8 MG/DL (8.5-10.1); Osmolality,Calculated 283.1 MOS/KG (273-304); Potassium 4.5 MMOL/L (3.5-5.1)
[2021-12-26] MEDS: INSULIN LISPRO 100 UNIT/ML SUBCUT SCH ×4 (12:31→22:10)
[2021-12-26] MEDS: PANTOPRAZOLE 40 MG TABLET PO SCH ×2 (12:45→20:29)
[2021-12-26] MEDS: carvediloL 25 MG TABLET PO SCH ×2 (12:45→16:47)
[2021-12-26] MEDS: GABAPENTIN 100 MG CAPSULE PO SCH ×3 (12:45→20:30)
[2021-12-26] MEDS: ASPIRIN EC 81 MG TABLET PO SCH (12:45)
[2021-12-26] MEDS: INSULIN GLARGINE 100 UNIT/ML SUBCUT SCH (12:46)
[2021-12-26] MEDS: OLANZapine 2.5 MG TABLET PO SCH (20:29)
[2021-12-26] MEDS: FLUoxetine 10 MG CAPSULE PO SCH (20:30)
[2021-12-27 04:29] LABS: Osmolality,Calculated 276.1 MOS/KG (273-304); Potassium 4.5 MMOL/L (3.5-5.1)
[2021-12-27] MEDS: INSULIN LISPRO 100 UNIT/ML SUBCUT SCH ×4 (07:46→20:28)
[2021-12-27] MEDS: carvediloL 25 MG TABLET PO SCH ×2 (08:39→16:33)
[2021-12-27] MEDS: GABAPENTIN 100 MG CAPSULE PO SCH ×3 (08:39→20:28)
[2021-12-27] MEDS: PANTOPRAZOLE 40 MG TABLET PO SCH ×2 (08:39→20:28)
[2021-12-27] MEDS: ASPIRIN EC 81 MG TABLET PO SCH (08:39)
[2021-12-27] MEDS: INSULIN GLARGINE 100 UNIT/ML SUBCUT SCH (08:40)
[2021-12-27] MEDS ORDERED: NITROGLYCERIN SL 0.4 MG TABLET SL PRN (17:51)
[2021-12-27] MEDS ORDERED: ASPIRIN 325 MG TABLET PO ONE (18:40)
[2021-12-27] MEDS: OLANZapine 2.5 MG TABLET PO SCH (20:28)
[2021-12-27] MEDS: FLUoxetine 10 MG CAPSULE PO SCH (20:28)
[2021-12-27] MEDS: ALPRAZolam 0.5 MG TABLET PO PRN (20:28)
[2021-12-28 05:41] LABS: Basophils % 0.4 % (0.0-0.8); Eosinophils # 0.2 10*3/uL (0.0-0.87); Eosinophils % 2.2 % (0.00-10.9); Hematocrit 25.8 VOL% (35.7-47.0); Hemoglobin 7.4 GM/DL (12.0-16.0); Immature Granulocytes % 0.5 %; Immature Granulocytes Absolute 0.05 #; Lymphocytes # 1.7 10*3/uL (1.4-4.0); Lymphocytes % 15.9 % (21.3-54.2); Mean Corpuscular HGB Conc 28.7 GM/DL (32-36); Mean Corpuscular Volume 93.1 FL (87-102); Mean Platelet Volume 11.2 FL (9.6-12.0); Monocytes % 8.9 % (1.7-12.7); Neutrophils % 72.1 % (38.7-73.9); Platelet Count 314 T/CUMM (130-400); Red Blood Count 2.77 MC/CUMM (3.8-5.5); Red Cell Distribution Width 15.9 % (9.3-17.3); White Blood Count 10.5 T/CUMM (4-12)
[2021-12-28 06:05] LABS: Calcium 8.4 MG/DL (8.5-10.1); Osmolality,Calculated 288.8 MOS/KG (273-304); Potassium 5.6 MMOL/L (3.5-5.1)
[2021-12-28 06:12] LABS: C-Reactive Protein HS Cardiac 3.16 MG/DL (0-0.3); Risk Ratio 2.37
[2021-12-28 07:21] LABS: Hypochromia 3+; Platelet Estimate Normal
[2021-12-28] MEDS: INSULIN LISPRO 100 UNIT/ML SUBCUT SCH ×4 (08:53→20:58)
[2021-12-28] MEDS: INSULIN GLARGINE 100 UNIT/ML SUBCUT SCH (08:53)
[2021-12-28] MEDS: PANTOPRAZOLE 40 MG TABLET PO SCH ×2 (08:54→20:56)
[2021-12-28] MEDS: carvediloL 25 MG TABLET PO SCH ×2 (08:54→16:30)
[2021-12-28] MEDS: GABAPENTIN 100 MG CAPSULE PO SCH ×3 (08:54→20:55)
[2021-12-28] MEDS: ASPIRIN EC 81 MG TABLET PO SCH (08:54)
[2021-12-28] MEDS: FLUoxetine 10 MG CAPSULE PO SCH (20:56)
[2021-12-28] MEDS: OLANZapine 2.5 MG TABLET PO SCH (20:56)
[2021-12-29 06:11] LABS: Calcium 8.8 MG/DL (8.5-10.1); Osmolality,Calculated 295.7 MOS/KG (273-304); Potassium 5.7 MMOL/L (3.5-5.1)
[2021-12-29] MEDS: INSULIN LISPRO 100 UNIT/ML SUBCUT SCH ×2 (07:18→14:36)
[2021-12-29] MEDS: carvediloL 25 MG TABLET PO SCH (08:45)
[2021-12-29] MEDS: GABAPENTIN 100 MG CAPSULE PO SCH (08:45)
[2021-12-29] MEDS: PANTOPRAZOLE 40 MG TABLET PO SCH (08:45)
[2021-12-29] MEDS: ASPIRIN EC 81 MG TABLET PO SCH (08:45)
[2021-12-29] MEDS: INSULIN GLARGINE 100 UNIT/ML SUBCUT SCH (08:46)
[2021-12-29 09:12] LABS: Basophils # 0.1 # (0.0-0.1); Basophils % 0.7 % (0.2-1.0); Eosinophils # 0.2 # (0.0-0.70); Eosinophils % 2.1 % (0.0-10.0); Hematocrit 24.3 VOL% (37.0-47.0); Hemoglobin 7.1 GM/DL (12.0-16.0); Lymphocytes # 1.6 # (1.3-2.9); Lymphocytes % 15.9 % (20.5-45.5); Mean Corpuscular HGB Conc 29.2 GM/DL (32-36); Mean Corpuscular Volume 93.1 FL (81-99); Mean Platelet Volume 10.2 FL (7.4-10.4); Neutrophils % 71.1 % (43.0-65.0); Platelet Count 347 T/CUMM (130-400); Red Blood Count 2.61 MC/CUMM (4.20-5.40); Red Cell Distribution Width 16.2 % (11.5-15.5); White Blood Count 10.2 T/CUMM (4.8-10.8)
[2021-12-29] MEDS ORDERED: DICLOFENAC 1% GEL 100 GM TUBE TOP SCH (15:00)
[2021-12-29 16:45] VITALS: BP 159/94
== END 2021-12-29 15:15 | disposition home or self-care (01) | DRG 468 ==
LOC: N.ED 19:25 → SUATTDRO 12-14 02:49 → N.EDINP 12-14 02:49 → N.3E 12-14 09:02
PROVIDERS: ADMIT Hospitalist; ATTEND Hospitalist

== ENCOUNTER 2022-02-20 14:24 | Inpatient (IN) ==
[2022-02-20] MEDS ORDERED: ONDANSETRON 4 MG/2 ML VIAL IV PRN (16:40)
[2022-02-20] MEDS ORDERED: GLUCAGON 1 MG VIAL IM PRN (16:40)
[2022-02-20] MEDS ORDERED: ACETAMINOPHEN 325 MG TABLET PO PRN (16:40)
[2022-02-20] MEDS ORDERED: diphenhydrAMINE CAP 25 MG CAPSULE PO PRN (16:40)
[2022-02-20] MEDS ORDERED: MORPHINE 2 MG/1 ML SYRINGE IV PRN (16:40)
[2022-02-20] MEDS ORDERED: hydrALAZINE 20 MG/1 ML VIAL IV PRN (16:40)
[2022-02-20] MEDS ORDERED: guaiFENesin/DM ER 600-30 MG TABLET PO PRN (16:40)
[2022-02-20] MEDS ORDERED: DOCUSATE SODIUM 100 MG CAPSULE PO PRN (16:40)
[2022-02-20] MEDS ORDERED: NICOTINE 21 MG/24 HR PATCH TRANSDERM PRN (16:40)
[2022-02-20] MEDS ORDERED: ZALEPLON 5 MG CAPSULE PO PRN (16:40)
[2022-02-20] MEDS ORDERED: DEXTROSE 10% 250 ML BAG IV PRN (16:49)
[2022-02-20] MEDS ORDERED: SODIUM CHLORIDE 0.9% 1,000 ML IV PRN (16:54)
[2022-02-20 17:29] LABS: Calcium 8.4 MG/DL (8.5-10.1); Osmolality,Calculated 286.7 MOS/KG (273-304); Potassium 3.9 MMOL/L (3.5-5.1)
[2022-02-20 17:36] LABS: Folate 4.11 NG/ML (5.38-24.0); Vitamin B12 494 PG/ML (211-911)
[2022-02-20 18:36] LABS: Sedimentation Rate-Westergren 140 MM/HR (0-20)
[2022-02-20] MEDS: cefTRIAXone 1,000 MG in SODIUM CHLORIDE 0.9% 100 ML IV SCH (18:40)
[2022-02-20 18:44] LABS: Basophils % 0.1 % (0.0-0.8); Eosinophils % 0.1 % (0.00-10.9); Hematocrit 20.6 VOL% (35.7-47.0); Immature Granulocytes % 0.9 %; Immature Granulocytes Absolute 0.13 #; Lymphocytes # 1.7 10*3/uL (1.4-4.0); Lymphocytes % 11.5 % (21.3-54.2); Mean Corpuscular HGB Conc 30.1 GM/DL (32-36); Mean Corpuscular Volume 90.4 FL (87-102); Mean Platelet Volume 9.9 FL (9.6-12.0); Monocytes # 0.6 10*3/uL (0.11-0.8); Monocytes % 4.1 % (1.7-12.7); Neutrophils % 83.3 % (38.7-73.9); Platelet Count 388 T/CUMM (130-400); Red Blood Count 2.28 MC/CUMM (3.8-5.5); Red Cell Distribution Width 18.7 % (9.3-17.3)
[2022-02-20 18:46] LABS: Hemoglobin 6.2 GM/DL (12.0-16.0)
[2022-02-20] MEDS ORDERED: VANCOMYCIN INJ 1,000 MG in SODIUM CHLORIDE 0.9% 250 ML IV ONE (21:00)
[2022-02-20] MEDS: INSULIN LISPRO 100 UNIT/ML SUBCUT SCH (21:14)
[2022-02-20] MEDS: FOLIC ACID 1 MG TABLET PO SCH ×2 (21:14→21:38)
[2022-02-21 07:06] LABS: Basophils % 0.2 % (0.0-0.8); Eosinophils # 0.1 10*3/uL (0.0-0.87); Eosinophils % 0.3 % (0.00-10.9); Immature Granulocytes % 0.7 %; Lymphocytes # 1.7 10*3/uL (1.4-4.0); Lymphocytes % 11.5 % (21.3-54.2); Mean Corpuscular Volume 90.3 FL (87-102); Mean Platelet Volume 9.7 FL (9.6-12.0); Monocytes # 0.8 10*3/uL (0.11-0.8); Monocytes % 5.3 % (1.7-12.7); Platelet Count 384 T/CUMM (130-400); Red Cell Distribution Width 18.2 % (9.3-17.3); White Blood Count 15.2 T/CUMM (4-12)
[2022-02-21 07:11] LABS: Red Blood Count 2.77 MC/CUMM (3.8-5.5)
[2022-02-21 07:12] LABS: Hemoglobin 7.5 GM/DL (12.0-16.0)
[2022-02-21 07:21] LABS: Calcium 8.1 MG/DL (8.5-10.1); Osmolality,Calculated 290.5 MOS/KG (273-304); Potassium 4.1 MMOL/L (3.5-5.1)
[2022-02-21 08:07] LABS: % Iron Saturation 42.6 % (18-50)
[2022-02-21] MEDS ORDERED: IRON SUCROSE 200 MG in SODIUM CHLORIDE 0.9% 100 ML IV ONE (09:10)
[2022-02-21] MEDS ORDERED: FERRIC GLUCONATE COMPLEX 125 MG in SODIUM CHLORIDE 0.9% 100 ML IV ONE (10:00)
[2022-02-21] MEDS: GABAPENTIN 100 MG CAPSULE PO SCH ×3 (10:06→22:07)
[2022-02-21] MEDS: PANTOPRAZOLE 40 MG TABLET PO SCH (10:06)
[2022-02-21] MEDS: carvediloL 25 MG TABLET PO SCH ×2 (10:06→17:49)
[2022-02-21] MEDS: FOLIC ACID 1 MG TABLET PO SCH ×2 (10:06→22:07)
[2022-02-21] MEDS: ASPIRIN EC 81 MG TABLET PO SCH (10:06)
[2022-02-21] MEDS: INSULIN LISPRO 100 UNIT/ML SUBCUT SCH ×4 (10:07→22:05)
[2022-02-21] MEDS ORDERED: EPOETIN ALFA-EPBX 10,000 UNIT/ML VIAL IV PRN (10:23)
[2022-02-21] MEDS ORDERED: HEPARIN 10,000 UNIT/10 ML VIAL IV PRN (14:35)
[2022-02-21] MEDS ORDERED: HEPARIN 10,000 UNIT/10 ML VIAL IV SCH (14:45)
[2022-02-21] MEDS: cefTRIAXone 1,000 MG in SODIUM CHLORIDE 0.9% 100 ML IV SCH (18:15)
[2022-02-21] MEDS ORDERED: FLUoxetine 10 MG CAPSULE PO SCH (21:00)
[2022-02-21] MEDS ORDERED: OLANZapine 2.5 MG TABLET PO SCH (21:00)
[2022-02-22 04:58] LABS: Basophils % 0.2 % (0.0-0.8); Eosinophils % 0.3 % (0.00-10.9); Hematocrit 26.5 VOL% (35.7-47.0); Hemoglobin 7.9 GM/DL (12.0-16.0); Immature Granulocytes % 0.7 %; Immature Granulocytes Absolute 0.11 #; Lymphocytes # 1.7 10*3/uL (1.4-4.0); Lymphocytes % 11.1 % (21.3-54.2); Mean Corpuscular HGB Conc 29.8 GM/DL (32-36); Mean Corpuscular Volume 91.7 FL (87-102); Mean Platelet Volume 10.2 FL (9.6-12.0); Monocytes # 0.8 10*3/uL (0.11-0.8); Monocytes % 5.1 % (1.7-12.7); Neutrophils % 82.6 % (38.7-73.9); Platelet Count 378 T/CUMM (130-400); Red Blood Count 2.89 MC/CUMM (3.8-5.5); Red Cell Distribution Width 17.8 % (9.3-17.3); White Blood Count 15.3 T/CUMM (4-12)
[2022-02-22 05:22] LABS: Calcium 8.3 MG/DL (8.5-10.1); Osmolality,Calculated 284.7 MOS/KG (273-304); Potassium 4.5 MMOL/L (3.5-5.1)
[2022-02-22] MEDS: INSULIN LISPRO 100 UNIT/ML SUBCUT SCH ×2 (08:41→11:51)
[2022-02-22] MEDS: ASPIRIN EC 81 MG TABLET PO SCH (08:41)
[2022-02-22] MEDS: carvediloL 25 MG TABLET PO SCH (08:41)
[2022-02-22] MEDS: PANTOPRAZOLE 40 MG TABLET PO SCH (08:41)
[2022-02-22] MEDS: FOLIC ACID 1 MG TABLET PO SCH (08:42)
[2022-02-22] MEDS: GABAPENTIN 100 MG CAPSULE PO SCH (08:42)
[2022-02-22] MEDS ORDERED: FERROUS SULFATE 325 MG TABLET PO SCH (09:10)
[2022-02-22 12:12] VITALS: BP 132/79
[2022-02-23 10:23] LABS: Hemoglobin A1 (Alkaline) 97.6 % (96.5-98.5); Hemoglobin A2 (Alkaline) 2.4 % (1.5-3.5)
== END 2022-02-22 14:15 | disposition home or self-care (01) | DRG 663 ==
LOC: N.5E → SUATTDRO 16:01 → OBSVTOIN 16:01
PROVIDERS: ADMIT Internal Medicine; ATTEND Family Medicine

== ENCOUNTER 2022-03-02 11:36 | Observation (INO) ==
[2022-03-02 12:19] LABS: Basophils # 0.1 10*3/uL (0.0-0.2); Basophils % 0.4 % (0.0-0.8); Eosinophils # 0.1 10*3/uL (0.0-0.87); Eosinophils % 0.7 % (0.00-10.9); Hematocrit 32.5 VOL% (35.7-47.0); Hemoglobin 9.6 GM/DL (12.0-16.0); Immature Granulocytes % 0.9 %; Immature Granulocytes Absolute 0.13 #; Lymphocytes # 1.3 10*3/uL (1.4-4.0); Lymphocytes % 9.6 % (21.3-54.2); Mean Corpuscular HGB Conc 29.5 GM/DL (32-36); Mean Platelet Volume 9.8 FL (9.6-12.0); Monocytes # 0.8 10*3/uL (0.11-0.8); Monocytes % 5.5 % (1.7-12.7); Neutrophils % 82.9 % (38.7-73.9); Platelet Count 588 T/CUMM (130-400); Red Blood Count 3.57 MC/CUMM (3.8-5.5); Red Cell Distribution Width 17.2 % (9.3-17.3); White Blood Count 13.7 T/CUMM (4-12)
[2022-03-02 12:35] LABS: PT Patient Result 11.1 SECS (10.5-12.0); Partial Thromboplastin Time 29.3 SECS (23.8-32.1)
[2022-03-02 12:43] LABS: Albumin 1.7 G/DL (3.4-5.0); Bilirubin,Total 0.4 MG/DL (0.20-1.00); Calcium 8.2 MG/DL (8.5-10.1); Osmolality,Calculated 314.5 MOS/KG (273-304); Potassium 5.5 MMOL/L (3.5-5.1); Total Protein 7.4 G/DL (6.4-8.2)
[2022-03-02] MEDS ORDERED: SODIUM CHLORIDE 0.9% 1,000 ML IV STA (12:53)
[2022-03-02] MEDS ORDERED: ONDANSETRON 4 MG/2 ML VIAL IV PRN (14:24)
[2022-03-02] MEDS ORDERED: DEXTROSE 50% 25 GM/50 ML VIAL IV PRN (14:24)
[2022-03-02] MEDS ORDERED: GLUCAGON 1 MG VIAL IM PRN ×2 (14:24)
[2022-03-02] MEDS ORDERED: ACETAMINOPHEN 325 MG TABLET PO PRN (14:24)
[2022-03-02] MEDS ORDERED: DEXTROSE 50% 25 GM/50 ML SYRINGE IV PRN (14:32)
[2022-03-02] MEDS ORDERED: DEXTROSE 10% 250 ML BAG IV PRN (15:00)
[2022-03-02] MEDS: INSULIN REGULAR 100 UNIT/ML SUBCUT SCH ×2 (17:04→21:36)
[2022-03-02 17:18] LABS: Glucose,Urine (UA) 500 mg/dL (Negative); Ketones,Urine Negative (Negative); Nitrite,Urine Negative (Negative); Protein,Urine >=300 mg/dL (Negative); RBC,Urine 4 /HPF (0-4); Squamous Epithelial Cell,Urine Occasional /HPF (0-10); Urine Appearance Clear (Clear); Urine Color Yellow (Yellow)
[2022-03-02 17:19] LABS: Bilirubin,Urine Negative (Negative); Blood, Urine Small mg/dL (Negative); Urine Urobilinogen 0.2 eU/dL (<2.0)
[2022-03-02] MEDS ORDERED: LABETALOL 20 MG/4 ML SYRINGE IV PRN (19:04)
[2022-03-02] MEDS: HYDROmorphone 1 MG/1 ML SYRINGE IV PRN (21:36)
[2022-03-03] MEDS: HYDROmorphone 1 MG/1 ML SYRINGE IV PRN ×3 (03:57→15:55)
[2022-03-03 06:26] LABS: Basophils # 0.1 10*3/uL (0.0-0.2); Basophils % 0.4 % (0.0-0.8); Eosinophils # 0.2 10*3/uL (0.0-0.87); Eosinophils % 1.2 % (0.00-10.9); Hematocrit 26.2 VOL% (35.7-47.0); Hemoglobin 7.7 GM/DL (12.0-16.0); Immature Granulocytes % 0.8 %; Immature Granulocytes Absolute 0.12 #; Lymphocytes # 1.4 10*3/uL (1.4-4.0); Lymphocytes % 9.6 % (21.3-54.2); Mean Corpuscular HGB Conc 29.4 GM/DL (32-36); Mean Corpuscular Volume 92.3 FL (87-102); Mean Platelet Volume 9.9 FL (9.6-12.0); Monocytes # 0.9 10*3/uL (0.11-0.8); Monocytes % 6.3 % (1.7-12.7); Neutrophils % 81.7 % (38.7-73.9); Platelet Count 566 T/CUMM (130-400); Red Blood Count 2.84 MC/CUMM (3.8-5.5); White Blood Count 14.5 T/CUMM (4-12)
[2022-03-03 06:53] LABS: Albumin 1.6 G/DL (3.4-5.0); Bilirubin,Total 0.4 MG/DL (0.20-1.00); Calcium 8.6 MG/DL (8.5-10.1); Osmolality,Calculated 303.7 MOS/KG (273-304); Potassium 5.5 MMOL/L (3.5-5.1); Total Protein 7.9 G/DL (6.4-8.2)
[2022-03-03] MEDS: INSULIN REGULAR 100 UNIT/ML SUBCUT SCH ×3 (08:15→15:57)
[2022-03-03] MEDS ORDERED: ALTEPLASE 2 MG VIAL ONE (09:14)
[2022-03-03] MEDS ORDERED: TUBERCULIN SKIN TEST 0.1 ML SYRINGE INTRADERM ONE (10:00)
[2022-03-03] MEDS ORDERED: HEPARIN LOCK FLUSH 500 UNIT/5 ML SYRINGE IV ONE (10:33)
[2022-03-03] MEDS ORDERED: DEXTROSE 50% 25 GM/50 ML VIAL IV PRN (11:23)
[2022-03-03] MEDS ORDERED: EPOETIN ALFA-EPBX 4,000 UNIT/ML VIAL IV PRN (12:23)
[2022-03-03] MEDS ORDERED: hydrALAZINE 20 MG/1 ML VIAL IV PRN (13:13)
[2022-03-03] MEDS ORDERED: HEPARIN 10,000 UNIT/10 ML VIAL IV PRN (14:57)
[2022-03-03 17:15] VITALS: BP 138/90
== END 2022-03-03 18:13 | disposition home or self-care (01) ==
LOC: EDBD → EDUNIT# → N.ED 11:36 → N.EDINP 11:36 → N.3E 18:36
PROVIDERS: ADMIT Internal Medicine Geriatric Medicine; ATTEND Internal Medicine Geriatric Medicine